=== PATIENT | female | born 1990 | race American Indian/Alaskan Native ===

== ENCOUNTER 2017-01-21 10:56 | Emergency (ER) | payer SELFPAY ==
[2017-01-21 12:50] LABS: Basophils % (Auto) 0.8 % (0.0-1.8); Eosinophils % (Auto) 2.6 % (0.0-4.3); Hematocrit 40.5 % (30.3-42.9); Hemoglobin 13.2 gm/dl (10.1-14.3); Mean Corpuscular HGB Conc 33 % (30-34); Mean Corpuscular Hemoglobin 29 pg (28-32); Mean Corpuscular Volume 90 fl (79-97); Platelet Count 233 K/mm3 (140-440); Red Cell Distribution Width 14.1 % (13.2-15.2); White Blood Count 6.2 K/mm3 (4.5-11.0)
[2017-01-21 12:54] LABS: Alanine Aminotransferase 11 units/L (7-56); Albumin 4.3 g/dL (3.9-5); Albumin/Globulin Ratio 1.3 %; Alkaline Phosphatase 50 units/L (35-129); Anion Gap 14 mmol/L; BUN/Creatinine Ratio 13.33; Blood Urea Nitrogen 8 mg/dL (7-17); Calcium 9.5 mg/dL (8.4-10.2); Carbon Dioxide 27 mmol/L (22-30); Chloride 100.3 mmol/L (98-107); Glucose 84 mg/dL (65-100); Lipase 25 units/L (13-60); Potassium 3.9 mmol/L (3.6-5.0); Sodium 137 mmol/L (137-145); Total Protein 7.5 g/dL (6.3-8.2)
[2017-01-21 13:07] LABS: Bilirubin,Urine NEG (Negative); Blood,Urine NEG (Negative); Ketones,Urine NEG (Negative); Leukocyte Esterase,Urine NEG (Negative); Mucus,Urine 3+ /HPF; Nitrite,Urine NEG (Negative); Protein,Urine <15 mg/dL mg/dL (Negative)
--- NOTE | 2017-01-21 21:17 | Emergency Department Report ---
ED Female HPI - General Chief complaint: Abdominal Pain Stated complaint: CRAMPS/HEADACHE Time Seen by Provider: 01/21/17 21:01 Source: patient Mode of arrival: Ambulatory Limitations: No Limitations - History of Present Illness Initial comments: 26-year-old female presents to the emergency department complaining of abdominal cramping and vaginal discharge. Symptoms have been intermittent for 2 weeks. She describes a thick, white vaginal discharge with a strong odor. She denies seeing any blood. She also reports intermittent throbbing headache She denies vision changes, nausea, vomiting, or diarrhea. There are no other complaints. MD Complaint: vaginal discharge -: Gradual, week(s) (2) Location: suprapubic Radiation: non-radiating Severity: moderate Severity scale (0 -10): 5 Quality: cramping Consistency: intermittent Improves with: none Worsens with: none Are you Now?: No Associated Symptoms: headaches - Related Data Sexually active: Yes Allergies Allergy/AdvReac Type Severity Reaction Status Date / Time No Known Allergies Allergy Unverified 01/21/17 11:57 ED Review of Systems ROS: Stated complaint: CRAMPS/HEADACHE Other details as noted in HPI Comment: All other systems reviewed and negative Gastrointestinal: abdominal pain Genitourinary: discharge Neurological: headache ED Past Medical Hx - Past Medical History Previous Medical History?: Yes Hx Hypertension: No Hx CVA: No Hx Heart Attack/AMI: No Hx Congestive Heart Failure: No Hx Diabetes: No Hx Deep Vein Thrombosis: No Hx Pulmonary Embolism: No Hx GERD: No Hx Liver Disease: No Hx Renal Disease: No Hx of Cancer: No Hx Sickle Cell Disease: No Hx Arthritis: No Hx Headaches / Migraines: Yes Hx Seizures: No Hx Kidney Stones: No Hx Psychiatric Treatment: No Hx Asthma: No Hx COPD: No Hx Tuberculosis: No Hx Dementia: No Hx HIV: No - Surgical History Past Surgical History?: No Hx Coronary Stent: No Hx Open Heart Surgery: No Hx Pacemaker: No Hx Internal Defibrillator: No Hx Cholecystectomy: No Hx Appendectomy: No Hx Breast Surgery: No - Family History Family history: no significant - Social History Smoking Status: Current Every Day Smoker Substance Use Type: Marijuana ED Physical Exam - General Limitations: No Limitations General appearance: alert, in no apparent distress - Head Head exam: Present: atraumatic, normocephalic - Eye Eye exam: Present: normal appearance, PERRL, EOMI - ENT ENT exam: Present: normal exam, normal orophraynx, mucous membranes moist - Neck Neck exam: Present: normal inspection, full ROM. Absent: tenderness - Respiratory Respiratory exam: Present: normal lung sounds bilaterally. Absent: respiratory distress - Cardiovascular Cardiovascular Exam: Present: regular rate, normal rhythm, normal heart sounds - GI/Abdominal GI/Abdominal exam: Present: soft, tenderness (mild suprapubic tenderness to palpation), normal bowel sounds. Absent: distended, guarding, rebound - External exam: Present: normal external exam Speculum exam: Present: vaginal discharge (thick, white). Absent: erythema, cervical discharge, vaginal bleeding, foreign body, tissue - Extremities Exam Extremities exam: Present: normal inspection, full ROM. Absent: tenderness - Back Exam Back exam: Present: normal inspection, full ROM. Absent: tenderness - Neurological Exam Neurological exam: Present: alert, oriented X3. Absent: motor sensory deficit - Skin Skin exam: Present: warm, dry, intact ED Course Vital Signs 01/21/17 01/21/17 11:46 20:06 Temperature 98.4 F 98.2 F Pulse Rate 92 H 68 Respiratory 12 20 Rate Blood Pressure 128/66 119/78 Blood Pressure 128/66 [Right] O2 Sat by Pulse 100 100 Oximetry ED Medical Decision Making - Lab Data Result diagrams: 01/21/17 12:02 01/21/17 12:02 - Medical Decision Making Laboratory results reviewed and discussed with the patient. Patient will be empirically treated with IM ceftriaxone and oral azithromycin. Patient will be discharged home to follow up with her primary care physician. - Differential Diagnosis abdominal pain, UTI, STI Critical care attestation.: If time is entered above; I have spent that time in minutes in the direct care of this critically ill patient, excluding procedure time. ED Disposition Clinical Impression: Vaginal discharge Disposition: DC-01 TO HOME OR SELFCARE Is pt being admited?: No Condition: Stable Instructions: Abdominal Pain (ED) Referrals: PRIMARY CARE, [Primary Care Provider] - 3-5 Days Time of Disposition: 22:41
[2017-01-21] MEDS ORDERED: ROCEPHIN IM ONE (22:36)
[2017-01-21] MEDS ORDERED: XYLOCAINE 1% MPF 5 mL INFILTRATI ONE (22:36)
[2017-01-21] MEDS ORDERED: ZITHROMAX PO ONE (22:36)
[2017-01-21 23:10] VITALS: BP 120/69
== END 2017-01-21 23:00 | disposition home or self-care (01) ==
LOC: ED 10:56
DX: N89.8 Other specified noninflammatory disorders of vagina (principal)
CPT/HCPCS: 36415; 80053; 81001; 83690; 85025; 87210; 87591; 96372; 99284; J0696

== ENCOUNTER 2019-01-22 04:12 | Emergency (ER) | payer SELFPAY ==
[2019-01-22 04:29] VITALS: BP 129/83
[2019-01-22 05:21] LABS: Basophils # (Auto) 0.1 K/mm3 (0.0-0.1); Basophils % (Auto) 1.1 % (0.0-1.8); Eosinophils # (Auto) 0.2 K/mm3 (0.0-0.4); Eosinophils % (Auto) 4.1 % (0.0-4.3); Hematocrit 37.3 % (30.3-42.9); Hemoglobin 12.7 gm/dl (10.1-14.3); Lymphocytes # (Auto) 2.3 K/mm3 (1.2-5.4); Lymphocytes % (Auto) 46.1 % (13.4-35.0); Mean Corpuscular HGB Conc 34 % (30-34); Mean Corpuscular Volume 92 fl (79-97); Monocytes # (Auto) 0.3 K/mm3 (0.0-0.8); Monocytes % (Auto) 5.3 % (0.0-7.3); Platelet Count 234 K/mm3 (140-440); Red Blood Count 4.05 M/mm3 (3.65-5.03)
[2019-01-22 05:23] LABS: BUN/Creatinine Ratio 18; Blood Urea Nitrogen 14 mg/dL (7-17); Calcium 9.4 mg/dL (8.4-10.2); Hemolysis Index 4
[2019-01-22 05:27] LABS: HCG Qualitative,Urine Negative (Negative)
[2019-01-22 05:30] LABS: Bilirubin,Urine NEG (Negative); Blood,Urine LG (Negative); Color,Urine Yellow (Yellow); Mucus,Urine FEW /HPF; Protein,Urine <15 mg/dL mg/dL (Negative); Urobilinogen,Urine < 2.0 mg/dL (<2.0); WBC,Urine < 1.0 /HPF (0.0-6.0)
--- NOTE | 2019-01-22 06:09 | Emergency Department Report ---
ED General Adult HPI - General Chief complaint: Vaginal Bleeding Stated complaint: PELVIC PAIN/BLEEDING Time Seen by Provider: 01/22/19 06:08 Source: patient Mode of arrival: Ambulatory Limitations: No Limitations - History of Present Illness Initial comments: 28-year-old female is uncertain if she pulled out a tampon or IUD. She states that some irregular bleeding. She does not complain of discharge or abdominal pain. 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 This occurred 2 days ago. Associated Symptoms: denies other symptoms - Related Data Allergies Allergy/AdvReac Type Severity Reaction Status Date / Time No Known Allergies Allergy Unverified 01/21/17 11:57 ED Review of Systems ROS: Stated complaint: PELVIC PAIN/BLEEDING Other details as noted in HPI Constitutional: denies: chills, fever Eyes: denies: eye pain, eye discharge, vision change ENT: denies: ear pain, throat pain Respiratory: denies: cough, shortness of breath, wheezing Cardiovascular: denies: chest pain, palpitations Endocrine: no symptoms reported Gastrointestinal: denies: abdominal pain, nausea, diarrhea Genitourinary: as per HPI, abnormal menses. denies: urgency, dysuria, discharge Musculoskeletal: denies: back pain, joint swelling, arthralgia Skin: denies: rash, lesions Neurological: denies: headache, weakness, paresthesias Psychiatric: denies: anxiety, depression Hematological/Lymphatic: denies: easy bleeding, easy bruising ED Past Medical Hx - Past Medical History Previous Medical History?: Yes Hx Hypertension: No Hx CVA: No Hx Heart Attack/AMI: No Hx Congestive Heart Failure: No Hx Diabetes: No Hx Deep Vein Thrombosis: No Hx Pulmonary Embolism: No Hx GERD: No Hx Liver Disease: No Hx Renal Disease: No Hx Sickle Cell Disease: No Hx Arthritis: No Hx Headaches / Migraines: Yes Hx Seizures: No Hx Kidney Stones: No Hx Psychiatric Treatment: No Hx Asthma: No Hx COPD: No Hx Tuberculosis: No Hx Dementia: No Hx HIV: No - Surgical History Past Surgical History?: No Hx Coronary Stent: No Hx Open Heart Surgery: No Hx Pacemaker: No Hx Internal Defibrillator: No Hx Cholecystectomy: No Hx Appendectomy: No Hx Breast Surgery: No - Social History Smoking Status: Current Every Day Smoker Substance Use Type: None ED Physical Exam - General Limitations: No Limitations General appearance: alert, in no apparent distress - Head Head exam: Present: atraumatic, normocephalic - Eye Eye exam: Present: normal appearance - ENT ENT exam: Present: mucous membranes moist - Neck Neck exam: Present: normal inspection - Respiratory Respiratory exam: Present: normal lung sounds bilaterally. Absent: respiratory distress - Cardiovascular Cardiovascular Exam: Present: regular rate, normal rhythm. Absent: systolic murmur, diastolic murmur, rubs, gallop - GI/Abdominal GI/Abdominal exam: Present: soft, normal bowel sounds. Absent: distended, tenderness, guarding - Speculum exam: Present: normal speculum exam, other (there is an adequate visualization of the cervix due to lack of a pelvic bed) Bi-manual exam: Present: normal bi-manual exam - Extremities Exam Extremities exam: Present: normal inspection - Back Exam Back exam: Present: normal inspection - Neurological Exam Neurological exam: Present: alert, oriented X3 - Psychiatric Psychiatric exam: Present: normal affect, normal mood - Skin Skin exam: Present: warm, dry, intact, normal color. Absent: rash ED Course Vital Signs 01/22/19 04:15 Temperature 98.1 F Pulse Rate 70 Respiratory 14 Rate Blood Pressure 129/83 O2 Sat by Pulse 99 Oximetry ED Medical Decision Making - Lab Data Result diagrams: 01/22/19 04:34 01/22/19 04:37 Laboratory Results - last 24 hr 01/22/19 01/22/19 01/22/19 04:34 04:37 Unknown WBC 5.0 RBC 4.05 Hgb 12.7 Hct 37.3 MCV 92 MCH 31 MCHC 34 RDW 13.0 L Plt Count 234 Lymph % (Auto) 46.1 H [place] % (Auto) 5.3 Eos % (Auto) 4.1 Baso % (Auto) 1.1 Lymph # 2.3 [place] # 0.3 Eos # 0.2 Baso # 0.1 Seg Neutrophils % 43.4 Seg Neutrophils # 2.2 Sodium 142 Potassium 4.3 Chloride 108.2 H Carbon Dioxide 26 Anion Gap 12 BUN 14 Creatinine 0.8 Estimated GFR > 60 BUN/Creatinine Ratio 18 Glucose 90 Calcium 9.4 Ur Reducing Substances Not Reportable Urine Bilirubin Neg Urine Ictotest Not Reportable Urine RBC (Auto) 4.0 U Epithel Cells (Auto) 1.0 Urine HCG, Qual Negative Critical care attestation.: If time is entered above; I have spent that time in minutes in the direct care of this critically ill patient, excluding procedure time. ED Disposition Clinical Impression: Dysfunctional uterine bleeding Disposition: DC-01 TO HOME OR SELFCARE Is pt being admited?: No Does the pt Need Aspirin: No Condition: Stable Instructions: Dysfunctional Uterine Bleeding (ED) Additional Instructions: Follow up with a sheet metal roofer. Use alternative control on until outpatient evaluation by a sheet metal roofer. Referrals: BRIANNA CAMACHO MD [Referring] - 3-5 Days Time of Disposition: 06:14
== END 2019-01-22 07:00 | disposition home or self-care (01) ==
LOC: ED 04:12
DX: N93.8 Other specified abnormal uterine and vaginal bleeding (principal); F17.200 Nicotine dependence, unspecified, uncomplicated
CPT/HCPCS: 36415; 80048; 81001; 81025; 85025

== ENCOUNTER 2019-07-15 20:17 | Emergency (ER) | payer SELFPAY ==
[2019-07-15 20:48] VITALS: BP 129/60
== END 2019-07-15 23:05 | disposition left against medical advice (07) ==
LOC: ED 20:17
DX: Z53.21 Procedure and treatment not carried out due to patient leaving prior to being seen by health care provider (principal)

== ENCOUNTER 2020-12-13 20:37 | Inpatient (IN) | payer MEDICAID ==
[2020-12-13] MEDS ORDERED: LACTATED RINGERS 1,000 ML ONE (20:50)
[2020-12-14] MEDS ORDERED: ePHEDrine SULFATE 50 MG/1 ML INJ IV PRN (00:59)
[2020-12-14] MEDS ORDERED: MINERAL OIL 30 ML ORAL LIQD PO PRN (00:59)
[2020-12-14] MEDS ORDERED: TERBUTALINE 1 MG/1 ML INJ SUB-Q PRN (00:59)
[2020-12-14] MEDS ORDERED: LIDOCAINE (2%) 20 MG/1 ML VIAL 20 ML MDV INFILTRATI ONE (00:59)
[2020-12-14] MEDS ORDERED: OXYTOCIN DRIP 30 UNITS/500 ML BAG IV SCH ×2 (01:00)
[2020-12-14] MEDS: OXYTOCIN DRIP 30 UNITS/500 ML BAG IV SCH ×2 (02:05→05:07)
[2020-12-14 02:06] LABS: Hematocrit 32.4 % (30.3-42.9); Hemoglobin 11.3 gm/dl (10.1-14.3); Mean Corpuscular HGB Conc 35 % (30-34); Mean Corpuscular Volume 90 fl (79-97); Platelet Count 318 K/mm3 (140-440); Red Cell Distribution Width 13.2 % (13.2-15.2)
[2020-12-14] MEDS: LACTATED RINGERS 1,000 ML IV SCH ×3 (02:08→16:43)
[2020-12-14] MEDS ORDERED: BUTORPHANOL 2 MG/1 ML INJ IV PRN (09:00)
[2020-12-14] MEDS ORDERED: NalbUPHINE 10 MG/1 ML INJ IV PRN (11:00)
[2020-12-14] MEDS ORDERED: ONDANSETRON 4 MG/2 ML INJ IV PRN (11:00)
[2020-12-14] MEDS ORDERED: NALOXONE 2 MG/2 ML INJ IV PRN (11:00)
[2020-12-14] MEDS ORDERED: diphenhydrAMINE 50 MG/ML VIAL IV PRN (11:00)
--- NOTE | 2020-12-14 11:30 | Anesthesia Consultation ---
Anesthesia Consult and Med Hx Date of service: 12/14/20 - Airway Anesthetic Teeth Evaluation: Good ROM Head & Neck: Adequate Mental/Hyoid Distance: Adequate Mallampati Class: Class II Intubation Access Assessment: Probably Good - Pulmonary Exam CTA: Yes - Cardiac Exam Cardiac Exam: RRR - Pre-Operative Health Status ASA Pre-Surgery Classification: ASA2 Proposed Anesthetic Plan: Epidural - Pulmonary Hx Smoking: No Hx Asthma: No COPD: No Hx Sleep Apnea: No - Cardiovascular System Hx Hypertension: No Hx Heart Attack/AMI: No Hx Angina: No Hx Pacemaker: No Hx Internal Defibrillator: No - Central Nervous System Hx Seizures: No - Gastrointestinal Hx Gastroesophageal Reflux Disease: No - Endocrine Hx Renal Disease: No Hx Liver Disease: No Hx Insulin Dependent Diabetes: No Hx Non-Insulin Dependent Diabetes: No - Hematic Hx Sickle Cell Disease: No - Other Systems Hx Alcohol Use: No Hx Obesity: Yes
[2020-12-14] MEDS: fentaNYL-BUPIV 2 MCG/ML-0.125% 200 MCG/100 ML BAG EPIDURAL SCH ×2 (11:31→19:17)
--- NOTE | 2020-12-14 11:33 | Progress Note ---
Labor Epidural - Labor Epidural Start Time: 10:44 Stop Time: 10:55 Performed by:: CHARLIE HARRINGTON (Dodie SOW) Procedure: Patient is requesting epidural for labor and pain. H&P, labs were reviewed. Patient IDed, H&P reviewed, all questions and concerns were answered, and consent was signed. Timeout was performed at bedside. Patient in sitting position. Sterile prep and drape was performed. 3ml of 1% lidocaine skin wheal at L[3]- L [4]. 18-gauge samaria epidural needle was advanced to loss of resistance with air technique 7cm. Negative CSF negative blood. Epidural catheter advanced to [12] centimeters. [negative] Aspiration [negative] test dose. Sterile dressing applied. Patient tolerated procedure.
--- NOTE | 2020-12-14 11:59 | History and Physical Report ---
History of Present Illness Date of examination: 12/14/20 Date of admission: 12/13/20 20:37 Chief complaint: My fluid is low History of present illness: Pt is a 29 year old who presents for induction of labor at 39.3 weeks with EDC 12/18/20, secondary to oligohydramnios at term. Pt has had an otherwise uncomplicated course. She is GBS negative. 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 Family/Genetic History: none Social history: single - Obstetrical History Expected Date of Delivery: 12/20/20 Actual Gestation: 39 Week(s) 1 Day(s) : 4 Para: 3 Number of Living Children: 3 Medications and Allergies Allergies Allergy/AdvReac Type Severity Reaction Status Date / Time No Known Allergies Allergy Unverified 01/21/17 11:57 Home Medications Medication Instructions Recorded Confirmed Last Taken Type Butalb/Acetamin/Caff 50-325-40 1 - 2 tab PO Q4H PRN #15 tablet 02/10/19 12/14/20 Unknown Rx [Fioricet 50-325-40] Ketorolac [Toradol] 10 mg PO Q8H PRN #20 tablet 02/10/19 12/14/20 Unknown Rx Promethazine [Phenergan] 25 mg PO Q6HR PRN #24 tab 02/10/19 12/14/20 Unknown Rx Nitrofurantoin Patrick/M-Cryst 100 mg PO BID 7 Days #14 capsule 09/29/19 12/14/20 Unknown Rx [Macrobid CAP] metroNIDAZOLE [Flagyl] 500 mg PO BID 7 Days #14 tablet 09/29/19 12/14/20 Unknown Rx Active Meds: Active Medications Butorphanol Tartrate (Butorphanol 2 Mg/1 Ml Inj) 2 mg IV Q2H PRN PRN Reason: Labor Pain Last Admin: 12/14/20 08:44 Dose: 2 mg Documented by: Diphenhydramine HCl (Diphenhydramine 50 Mg/Ml Vial) 12.5 mg IV Q2H PRN PRN Reason: Itching Ephedrine Sulfate (Ephedrine Sulfate 50 Mg/1 Ml Inj) 10 mg IV Q2M PRN PRN Reason: Hypotension Oxytocin/Sodium Chloride (Pitocin/Ns 30 Unit/500ml) 30 units in 500 mls @ 0 mls/hr IV TITR AUDREY; Protocol Last Titration: 12/14/20 08:12 Dose: 8 mls/hr, 8 mls/hr Documented by: Oxytocin/Sodium Chloride (Pitocin/Ns 30 Unit/500ml) 30 units in 500 mls @ 2 mls/hr IV TITR AUDREY; Protocol Lactated Ringer's (Lactated Ringers) 1,000 mls @ 125 mls/hr IV DIRECT AUDREY Last Admin: 12/14/20 09:30 Dose: 125 mls/hr Documented by: Oxytocin/Sodium Chloride (Pitocin/Ns 30 Unit/500ml) 30 units in 500 mls @ 40 mls/hr IV TITR AUDREY; Protocol Fentanyl/Bupivacaine/Sodium Chlor (Fentanyl-Bupiv 2 Mcg/Ml-0.125%) 200 mcg in 100 mls @ 12 mls/hr EPIDURAL TITR AUDREY; Protocol Last Admin: 12/14/20 11:31 Dose: 12 mls/hr Documented by: Mineral Oil (Mineral Oil 30 Ml Oral Liqd) 30 ml PO QHS PRN PRN Reason: Constipation Nalbuphine HCl (Nalbuphine 10 Mg/1 Ml Inj) 2.5 mg IV Q2H PRN PRN Reason: Itching Naloxone HCl (Naloxone 2 Mg/2 Ml Inj) 0.2 mg IV Q5M PRN PRN Reason: Respiratory sedation Ondansetron HCl (Ondansetron 4 Mg/2 Ml Inj) 4 mg IV Q8H PRN PRN Reason: Nausea And Vomiting Terbutaline Sulfate (Terbutaline 1 Mg/1 Ml Inj) 0.25 mg SUB-Q ONCE PRN PRN Reason: Hyperstimulation/Hypertonicity Review of Systems All systems: negative Eyes: deferred Genitourinary: contractions - Vital Signs Vital signs: Vital Signs Pulse Pulse Ox 77 98 12/13/20 20:42 12/13/20 20:42 Temp Pulse Resp BP Pulse Ox 98.7 F 85 18 114/57 96 12/14/20 07:07 12/14/20 11:51 12/14/20 09:44 12/14/20 11:43 12/14/20 11:51 - Physical Exam Breasts: Positive: deferred Cardiovascular: Regular rate, Normal S1, Normal S2 Lungs: Positive: Clear to auscultation, Normal air movement Abdomen: Positive: normal appearance, soft, normal bowel sounds Genitourinary (Female): Positive: normal external genitalia, normal perenium Vagina: Positive: normal moisture Uterus: Positive: normal size, normal contour - Obstetrical FHR: auscultation normal Cervical Dilatation: 1 Cervical Effacement Percentage: 50 station: -3 Uterine Contraction Pattern: Absent Uterine Tone Measurement Phase: Contraction Uterine Contraction Intensity: Mild Results Result Diagrams: 12/14/20 00:30 Abnormal lab results 12/14/20 Range/Units 00:30 RBC 3.60 L (3.65-5.03) M/mm3 MCHC 35 H (30-34) % All other labs normal. Assessment and Plan IUP at 39.3 weeks here for induction of labor secondary to oligohydramnios at term. Pt has had an uncomplicated course. Admit of induction. AROM when able. Anticipate .
--- NOTE | 2020-12-14 22:09 | Event Note ---
Date: 12/14/20 On-call provider notified that tracing revealed deep variables with contractions. IUPC placed. SVE: 3.5/70/-3. scalp electrode placed previously. Begin amnioinfusion. Continue to closely monitor maternal and status.
[2020-12-14] MEDS ORDERED: SODIUM CHLORIDE 0.9% 1000 ML 1,000 ML VG SCH (22:15)
[2020-12-14] MEDS ORDERED: valACYclovir 500 MG TAB PO SCH (23:00)
--- NOTE | 2020-12-15 01:32 | Procedure Note ---
OB Delivery Note - Delivery Date of Delivery: 12/15/20 Surgeon: JHONY MCCALL Estimated blood loss: 200cc - Vaginal Delivery presentation: vertex Delivery position: OA Intrapartum events: PROM->1hr before delivery, meconium (terminal ), mult.variable deceleratio Delivery induction: oxytocin Delivery augmentation: rupture of membranes, pitocin Delivery monitor: internal FHT, internal uterine Route of delivery: Delivery placenta: spontaneous Delivery cord: other (minimal Henning's jelly ) Episiotomy: none Delivery laceration: other (Right periurethral without repair ) Anesthesia: epidural - Infant A at 1 minute: 8 at 5 minutes: 9 Infant Gender: Male (3536g (7lb 13oz) @ 0110 am)
[2020-12-15] MEDS ORDERED: PROMETHAZINE 25 MG TAB PO PRN (05:06)
[2020-12-15] MEDS ORDERED: WITCH HAZEL/ GLYCERIN PAD TP PRN (05:06)
[2020-12-15] MEDS ORDERED: ONDANSETRON 4 MG/2 ML INJ IV PRN (05:06)
[2020-12-15] MEDS ORDERED: OXYTOCIN DRIP 30 UNITS/500 ML BAG IV SCH (05:06)
[2020-12-15] MEDS ORDERED: HYDROcodone/ACETAMINOPHEN 5-325 MG TAB PO PRN (05:06)
[2020-12-15] MEDS ORDERED: MAGNESIUM HYDROXIDE (MOM) ORAL LIQD UDC PO PRN (05:06)
[2020-12-15] MEDS ORDERED: LANOLIN/ZINC/DIMETHICONE (LANSINOH) 7 GM TP PRN ×2 (05:06)
[2020-12-15] MEDS ORDERED: PROMETHAZINE 25 MG RECT SUPP PR PRN (05:06)
[2020-12-15] MEDS ORDERED: diphenhydrAMINE 25 MG CAP PO PRN (05:06)
[2020-12-15] MEDS ORDERED: BENZOCAINE/MENTHOL 20/0.5% TOP SPRAY 56 GM TP PRN (05:06)
[2020-12-15] MEDS: IBUPROFEN 600 MG TAB PO SCH ×4 (05:24→23:30)
--- NOTE | 2020-12-15 09:17 | Post Anesthesia Evaluation ---
- Post Anesthesia Evaluation Patient Participated: Yes Airway Patent: Yes Stable Respiratory Function: Yes Nausea/Vomiting: No Temp > 96.8F: Yes Pain Manageable: Yes Adequeate Hydration: Yes Anesthesia Complications: No Block Receding Appropriately: Yes Patient on Ventilator: No
[2020-12-15] MEDS: DOCUSATE SODIUM 100 MG CAP PO SCH ×2 (09:50→22:35)
[2020-12-15] MEDS: FERROUS SULFATE 325 MG TAB PO SCH ×2 (09:50→22:35)
[2020-12-15 14:51] LABS: Hematocrit 34.3 % (30.3-42.9); Hemoglobin 11.5 gm/dl (10.1-14.3)
[2020-12-16] MEDS ORDERED: MEASLES, MUMPS & RUBELLA 12,500 UNIT/0.5 ML VACCINE SUB-Q ONE (01:34)
[2020-12-16] MEDS ORDERED: TETANUS,DIPH,PERTUSS(ACELL) VACCINE 0.5 ML SYRINGE IM ONE (06:00)
[2020-12-16] MEDS: IBUPROFEN 600 MG TAB PO SCH ×3 (06:25→17:42)
[2020-12-16] MEDS: FERROUS SULFATE 325 MG TAB PO SCH ×2 (10:32→22:43)
[2020-12-16] MEDS: DOCUSATE SODIUM 100 MG CAP PO SCH ×2 (10:32→22:43)
--- NOTE | 2020-12-16 12:18 | Progress Note ---
Assessment and Plan A: PPD#1 s/p at term after induction for oligohydramnios Obesity P: Routine postoperative care Anticipate discharge later today or tomorrow Subjective - Subjective Date of service: 12/16/20 Principal diagnosis: s/p at term, obesity Interval history: No overnight events Patient reports: appetite normal, voiding normally, pain well controlled, ambulating normally : doing well Objective - Vital Signs Latest vital signs: Vital Signs Temp Pulse Resp BP BP Pulse Ox 12/16/20 08:00 97.9 F 81 18 140/81 96 12/15/20 23:18 98.2 F 90 20 133/83 98 12/15/20 20:32 20 12/15/20 16:45 98.6 F 77 20 135/90 Intake and Output 12/15/20 12/16/20 12/16/20 22:59 06:59 14:59 Intake Total 360 240 Output Total 500 Balance -140 240 Intake: Oral 360 Intake, Free Water 240 Output: Urine 500 Void 500 Other: Total, Intake Amount 240 Total, Output Amount 500 # Voids Void 1 - Exam Breasts: Present: deferred Abdomen: Present: soft (obese ) Uterus: Present: fundal height at umbilicus Extremities: Present: edema (trace)
--- NOTE | 2020-12-16 12:19 | Discharge Summary ---
Providers - Providers Date of Admission: 12/13/20 20:37 Date of discharge: 12/16/20 Attending physician: CLAUDETTE VENTURA 12/15/20 05:06 Consult to Trolley Collector [CONS] Routine Reason For Exam: assistance with , SNS Primary care physician: CLAUDETTE VENTURA Hospitalization Reason for admission: induction of labor Delivery: Procedure details: Please see delivery note. Episiotomy: none Laceration: other (right periurethral, hemostatic without repair ) Other procedures: none complications: none Discharge diagnosis: IUP at term delivered baby: male Hospital course: Pt was admitted for induction of labor at term with oligohydramnios. She went on to have a spontaneous vaginal delivery which she tolerated well. Her course was uncomplicated and she met discharge criteria on PPD#1. She will follow up in the office with Dr Ventura in 1 wk as she had a borderline blood pressure prior to discharge. Condition at discharge: Stable Disposition: DC-01 TO HOME OR SELFCARE - Discharge Diagnoses (1) Term of male Status: Acute (2) Oligohydramnios in third trimester Status: Acute Qualifiers: Fetus number: single or unspecified fetus Qualified Code(s): O41.03X0 - Oligohydramnios, third trimester, not applicable or unspecified (3) Obesity (BMI 35.0-39.9 without comorbidity) Status: Acute Plan - Discharge Medications Prescriptions: Ibuprofen [Motrin] 800 mg PO Q8HR PRN #30 tablet PRN Reason: Pain , Severe (7-10) HYDROcodone/APAP 5-325 [[place] 5/325] 1 each PO Q6HR PRN #15 tablet PRN Reason: Pain - Provider Discharge Summary Activity: routine, no sex for 6 weeks, no heavy lifting 4 weeks, no strenuous exercise Diet: routine Instructions: routine Additional instructions: [] Smoking cessation referral if applicable(refer to patient education folder for contact #) [] Refer to [facility] Booklet Call your doctor immediately for: * Fever > 100.5 * Heavy vaginal bleeding ( >1 pad per hour) * Severe persistent headache * Shortness of breath * Reddened, hot, painful area to leg or breast * Drainage or odor from incision. * Keep incision clean and dry at all times and follow doctor's instructions regarding bathing/showering - Follow up plan Follow up: CLAUDETTE VENTURA MD [Primary Care Provider] - 7 Days (BP check Please schedule your son's circumcision before he is one month old. )
[2020-12-17] MEDS: IBUPROFEN 600 MG TAB PO SCH ×2 (06:35→12:47)
[2020-12-17 08:38] VITALS: BP 126/84
[2020-12-17] MEDS: FERROUS SULFATE 325 MG TAB PO SCH (10:22)
[2020-12-17] MEDS: DOCUSATE SODIUM 100 MG CAP PO SCH (10:22)
== END 2020-12-17 14:40 | disposition home or self-care (01) | DRG 774 ==
LOC: LD 20:37 → OB 12-15 04:51
PROVIDERS: ADMIT Obstetrics & Gynecology; ATTEND Obstetrics & Gynecology
PROC: 10E0XZZ Delivery of Products of Conception, External Approach (ICD-10-PCS; principal; 2020-12-15)
PROC: 3E0R3BZ Introduction of Anesthetic Agent into Spinal Canal, Percutaneous Approach (ICD-10-PCS; 2020-12-15)
PROC: 00HU33Z Insertion of Infusion Device into Spinal Canal, Percutaneous Approach (ICD-10-PCS; 2020-12-15)
PROC: 10H07YZ Insertion of Other Device into Products of Conception, Via Natural or Artificial Opening (ICD-10-PCS; 2020-12-15)
PROC: 3E033VJ Introduction of Other Hormone into Peripheral Vein, Percutaneous Approach (ICD-10-PCS; 2020-12-15)
PROC: 3E0234Z Introduction of Serum, Toxoid and Vaccine into Muscle, Percutaneous Approach (ICD-10-PCS; 2020-12-16)
PROC: 3E0134Z Introduction of Serum, Toxoid and Vaccine into Subcutaneous Tissue, Percutaneous Approach (ICD-10-PCS; 2020-12-16)
DX: O41.03X0 Oligohydramnios, third trimester, not applicable or unspecified (principal); O98.32 Other infections with a predominantly sexual mode of transmission complicating childbirth; O99.214 Obesity complicating childbirth; Z20.822 Contact with and (suspected) exposure to COVID-19; A60.09 Herpesviral infection of other urogenital tract; O76 Abnormality in fetal heart rate and rhythm complicating labor and delivery; O77.0 Labor and delivery complicated by meconium in amniotic fluid; O71.82 Other specified trauma to perineum and vulva; Z3A.39 39 weeks gestation of pregnancy; Z37.0 Single live birth; Z23 Encounter for immunization
CPT/HCPCS: 36415; 85014; 85018; 85027; 86592; 86850; 86900; 86901; 88307; 99211; G0378; G0463; J0595; J2590; J7120; U0003